=== PATIENT | male | born 1995 | race Two or more races ===

== ENCOUNTER 2023-11-21 05:48 | Inpatient (IN) | payer MEDICAID, OTHER ==
[~2023-11-21] VITALS: Ht 157.5 cm; Wt 84.9 kg
[2023-11-21 07:20] LABS: Urine Bacteria FEW /hpf (None Seen); Urine Blood 3+ /uL (Negative); Urine Clarity Ex.Turbid (Clear); Urine Mucus MODERATE (None Seen); Urine Protein, UAD 2+ (Negative); Urine Specific Gravity 1.033 (1.001-1.035); Urine Urobilinogen Normal (Negative); Urine WBC 44 /hpf (0 - 3); Urine pH 5.5 (5.0-9.0)
[2023-11-21 07:26] LABS: Urine Color Amber (Yellow)
[2023-11-21 08:03] LABS: Basophils # (auto) 0 10 ^3/uL (0-0.2); Basophils % (auto) 0.2 % (0.0-2.0); Eosinophils # (auto) 0 10 ^3/uL (0-0.8); Eosinophils % (auto) 0.1 % (0.0-7.0); Hematocrit 47.2 % (41.0-53.0); Hemoglobin 15.8 g/dL (13.5-17.5); Lymphocytes # (auto) 1.3 10 ^3/uL (0.4-5.4); Lymphocytes % (auto) 9.1 % (10.0-50.0); Mean Corpuscular Hemoglobin 28.7 pg (28.0-32.0); Mean Corpuscular Hgb Conc. 33.4 g/dL (32.0-36.0); Monocytes # (auto) 0.7 10 ^3/uL (0-1.3); Monocytes % (auto) 4.9 % (0.0-12.0); Neutrophils # (auto) 12.6 10 ^3/uL (1.6-8.6); Neutrophils % (auto) 85.7 % (37.0-80.0); Nucleated Red Blood Cells % 0.2 %; Red Blood Cells 5.49 10^6/uL (4.5-5.90); Red Cell Distribution Width 13.8 % (11.8-14.3); White Blood Cell 14.7 10^3/uL (4.4-10.8)
[2023-11-21 08:15] LABS: Alanine Aminotransferase 27 U/L (7-40); Albumin 4.6 g/dL (3.2-4.8); Alkaline Phosphatase 87 U/L (46-116); Anion Gap 7 (5-15); Aspartate Aminotransferase 19 U/L (13-40); BUN/Creatinine Ratio 10.1 (10.0-20.0); Bilirubin, Total 0.8 mg/dL (0.2-1.0); Blood Urea Nitrogen 10 mg/dL (9-23); Calcium 9.7 mg/dL (8.5-10.1); Carbon Dioxide 26 mmol/L (20-30); Chloride 106 mmol/L (98-107); Glucose 110 mg/dL (74-106); Potassium 4.6 mmol/L (3.5-5.1); Sodium 139 mmol/L (136-145); Total Protein 7.5 g/dL (5.7-8.2)
[2023-11-21] MEDS: SODIUM CHLORIDE 0.9% 1,000 ML IV ONE ×2 (08:24→08:54)
[2023-11-21] MEDS: cefTRIAXone 1GM/50ML D5W 50 ML IV ONE (08:29)
[2023-11-21] MEDS: KETOROLAC TROMETH 30 MG/ML 1ML VIAL IV ONE (08:30)
[2023-11-21 11:16] VITALS: PULSE 84; O2SAT 96
[2023-11-21] MEDS ORDERED: MORPHINE SULFATE INJ 2 MG/ml SYRG IV PRN (11:30)
[2023-11-21] MEDS ORDERED: DOCUSATE SOD 100 MG CAP PO PRN (11:30)
[2023-11-21] MEDS ORDERED: ONDANSETRON HCL 4 MG/2 ML VIAL IV PRN (11:30)
[2023-11-21] MEDS: SODIUM CHLORIDE 0.9% 1,000 ML IV SCH (12:33)
[2023-11-21 13:59] VITALS: RESP 16; O2SAT 96
[2023-11-21 17:00] VITALS: BP 123/72; PULSE 95; RESP 18; TEMP 98.2; O2SAT 98
[2023-11-21] MEDS: TAMSULOSIN HYDROCHLORIDE 0.4 MG CAP PO SCH (18:05)
[2023-11-21] MEDS: KETOROLAC TROMETH 30 MG/ML 1ML VIAL IV SCH (18:06)
[2023-11-22] VITALS (8 sets, daily range): BP systolic 118–143; BP diastolic 75–96; PULSE 70–80; RESP 16–19; TEMP 98–98.3; O2SAT 96–100
[2023-11-22 06:02] LABS: Alanine Aminotransferase 24 U/L (7-40); Albumin 3.9 g/dL (3.2-4.8); Alkaline Phosphatase 73 U/L (46-116); Anion Gap 6 (5-15); Aspartate Aminotransferase 13 U/L (13-40); BUN/Creatinine Ratio 10.8 (10.0-20.0); Basophils # (auto) 0 10 ^3/uL (0-0.2); Basophils % (auto) 0.5 % (0.0-2.0); Bilirubin, Total 0.9 mg/dL (0.2-1.0); Blood Urea Nitrogen 8 mg/dL (9-23); Calcium 9.1 mg/dL (8.7-10.4); Carbon Dioxide 24 mmol/L (20-30); Chloride 110 mmol/L (98-107); Eosinophils # (auto) 0.1 10 ^3/uL (0-0.8); Eosinophils % (auto) 1.6 % (0.0-7.0); Glucose 99 mg/dL (74-106); Hematocrit 44.4 % (41.0-53.0); Hemoglobin 14.8 g/dL (13.5-17.5); Lymphocytes # (auto) 3.2 10 ^3/uL (0.4-5.4); Lymphocytes % (auto) 38.2 % (10.0-50.0); Mean Corpuscular Hemoglobin 29.1 pg (28.0-32.0); Mean Corpuscular Hgb Conc. 33.4 g/dL (32.0-36.0); Mean Corpuscular Volume 87.2 fL (80.0-100.0); Monocytes # (auto) 0.7 10 ^3/uL (0-1.3); Monocytes % (auto) 8.2 % (0.0-12.0); Neutrophils # (auto) 4.3 10 ^3/uL (1.6-8.6); Neutrophils % (auto) 51.5 % (37.0-80.0); Nucleated Red Blood Cells % 0.2 %; Potassium 4.3 mmol/L (3.5-5.1); Red Blood Cells 5.09 10^6/uL (4.5-5.90); Red Cell Distribution Width 13.5 % (11.8-14.3); Sodium 140 mmol/L (136-145); Total Protein 6.4 g/dL (5.7-8.2); White Blood Cell 8.4 10^3/uL (4.4-10.8)
[2023-11-22] MEDS: cefTRIAXone 1GM/50ML D5W 50 ML IV SCH (08:38)
[2023-11-22] MEDS ORDERED: KETOROLAC TROMETH 30 MG/ML 1ML VIAL IV PRN (16:00)
[2023-11-23 01:00] VITALS: BP 125/83; PULSE 85; RESP 19; TEMP 97.9; O2SAT 95
[2023-11-23 05:01] VITALS: BP 126/73; PULSE 78; RESP 17; TEMP 97.6; O2SAT 97
[2023-11-23 08:00] VITALS: BP 125/78; PULSE 71; PULSE 99; RESP 16; TEMP 98.3; O2SAT 96
[2023-11-23 09:00] VITALS: BP 125/78; PULSE 71; RESP 16; TEMP 98.3; O2SAT 99
[2023-11-23] MEDS ORDERED: TAMS-35 PO (11:25)
[2023-11-23 13:38] VITALS: BP 134/88; PULSE 73; RESP 16; TEMP 98; O2SAT 98
[2023-11-25] MEDS ORDERED: KETOROLAC TROMETH 30 MG/ML 1ML VIAL IV SCH (12:00)
== END 2023-11-23 14:05 | disposition home or self-care (01) | DRG 463 ==
LOC: ER 05:48 → OVERFLOW 12:29 → CENTRAL 14:05
PROVIDERS: ADMIT Internal Medicine; ATTEND Internal Medicine
DX: N13.6 Pyonephrosis (principal); N20.0 Calculus of kidney; R06.00 Dyspnea, unspecified; R31.9 Hematuria, unspecified; Z83.3 Family history of diabetes mellitus; Z82.49 Family history of ischemic heart disease and other diseases of the circulatory system
CPT/HCPCS: 36415; 74018; 74176; 80053; 81001; 85025; 87086; 96365; 96375; G0378; J1885